=== PATIENT | male | born 1965 ===

== ENCOUNTER 2018-05-17 22:12 | Emergency (ER) | payer SELFPAY ==
[2018-05-17 22:18] VITALS: BP 135/93; PULSE 70; TEMP 98.5; O2SAT 96
[2018-05-17] MEDS ORDERED: diaZEpam 10 mg/2 ml Inj IM STA (22:49)
--- NOTE | 2018-05-17 23:54 | C.PDOC ---
History Of Present Illness 52 year old male states he lifted a heavy richardson yesterday and began having left lower back pain that now radiates down the left leg and calf. Patient reports the pain worsens with walking and lifting of the leg. He has never had back pain before in the past. Patient tried motrin and icy hot with no relief. Denies weakness, numbness, or incontinence. Chief Complaint (Nursing): Back Pain History Per: Patient History/Exam Limitations: no limitations Onset/Duration Of Symptoms: Days Current Symptoms Are (Timing): Still Present Quality Of Discomfort: Unable To Describe Previous Symptoms: None Associated Symptoms: None Recent travel outside of the [place]: No Past Medical History Reviewed: Historical Data, Nursing Documentation, Vital Signs Vital Signs: Last Vital Signs Temp 98.5 F 05/17/18 22:16 Pulse 70 05/17/18 22:16 Resp 16 05/17/18 22:16 BP 135/93 H 05/17/18 22:16 Pulse Ox 96 05/17/18 22:16 Family History: States: Unknown Family Hx - Social History Hx Alcohol Use: No Hx Substance Use: No Review Of Systems Constitutional: Negative for: Fever, Chills Eyes: Negative for: Pain, Redness ENT: Negative for: Mouth Swelling Cardiovascular: Negative for: Chest Pain, Palpitations Respiratory: Negative for: Cough, Shortness of Breath Gastrointestinal: Negative for: Nausea, Vomiting, Diarrhea Genitourinary: Negative for: Dysuria, Incontinence, Hematuria Musculoskeletal: Positive for: Back Pain Skin: Negative for: Rash Neurological: Negative for: Weakness, Numbness, Dizziness Physical Exam - Physical Exam Appears: Non-toxic Skin: Normal Color, Warm, No Rash Head: Atraumatic, Normacephalic Eye(s): bilateral: Normal Inspection Oral Mucosa: Moist Neck: Normal, No Midline Cervical Tenderness, No Paracervical Tenderness, Supple Chest: Symmetrical Respiratory: No Accessory Muscle Use, Other (Normal inspiratory effort) Gastrointestinal/Abdominal: Soft, No Tenderness Back: No CVA Tenderness, No Vertebral Tenderness, Paraspinal Tenderness (Left upper buttock area), Straight Leg Raising (Positive on left leg at 20 degrees) Extremity: Normal ROM (x4) Neurological/Psych: Oriented x3, Normal Speech, Normal Cranial Nerves (Grossly intact), Normal Motor, Normal Sensation Gait: Steady ED Course And Treatment O2 Sat by Pulse Oximetry: 96 (Room air) Pulse Ox Interpretation: Normal Medical Decision Making Medical Decision Making: Will treat for sciatica. Disposition Counseled Patient/Family Regarding: Diagnosis, Need For Followup, Rx Given - Disposition Referrals: at [facility] [Outside] Disposition: HOME/ ROUTINE Disposition Time: 23:50 Condition: STABLE Prescriptions: Cyclobenzaprine [Flexeril] 10 mg PO TID #15 tab Ibuprofen [Motrin Tab] 800 mg PO TID PRN #21 tab PRN Reason: Pain, Moderate (4-7) Prednisone [Deltasone] 40 mg PO DAILY #6 tablet Instructions: Sciatica (DC) Forms: [employer] (Japanese), Work Excuse Print Language: LITHUANIAN - Clinical Impression Clinical Impression: Sciatica - PA / MED ADMIN / Resident Statement MD/DO has reviewed & agrees with the documentation as recorded. - Scribe Statement The provider has reviewed the documentation as recorded by the Scribe Jerry Coburn All medical record entries made by the Scribe were at my direction and personally dictated by me. I have reviewed the chart and agree that the record accurately reflects my personal performance of the history, physical exam, medical decision making, and the department course for this patient. I have also personally directed, reviewed, and agree with the discharge instructions and disposition.
[2018-05-18 00:08] VITALS: RESP 20
== END 2018-05-18 00:07 | disposition home or self-care (01) ==
LOC: C.ER 22:12
DX: M54.30 Sciatica, unspecified side (principal)